=== PATIENT | female | born 1970 | race Caucasian/White ===

== ENCOUNTER 2019-12-14 03:19 | Inpatient (IN) ==
[2019-12-14] MEDS ORDERED: SODIUM CHLORIDE 0.9% 1,000 ML IV STA (04:42)
[2019-12-14 04:48] LABS: Basophils # 0.1 10*3/uL (0.0-0.2); Basophils % 0.3 % (0.0-0.8); Eosinophils # 0.3 10*3/uL (0.0-0.87); Eosinophils % 1.6 % (0.00-10.9); Hematocrit 43.1 VOL% (35.7-47.0); Hemoglobin 13.2 GM/DL (12.0-16.0); Immature Granulocytes % 0.7 %; Immature Granulocytes Absolute 0.12 #; Lymphocytes # 0.7 10*3/uL (1.4-4.0); Lymphocytes % 4.5 % (21.3-54.2); Mean Corpuscular HGB Conc 30.6 GM/DL (32-36); Mean Corpuscular Volume 78.4 FL (87-102); Mean Platelet Volume 10.3 FL (9.6-12.0); Monocytes % 2.5 % (1.7-12.7); NRBC # 0.02 10*3/uL; Neutrophils % 90.4 % (38.7-73.9); Platelet Count 303 T/CUMM (130-400); Red Cell Distribution Width 17.4 % (9.3-17.3); White Blood Count 16.5 T/CUMM (4-12)
[2019-12-14 05:17] LABS: Band Neutrophils 1 % (0-10); Eosinophils 2 % (0-10); Hypochromasia 1+; Lymphocytes 5 % (20-55); Microcytosis 2+; Platelet Estimate Normal; Segmented Neutrophils 87 % (50-85); Total Cells Counted 100
[2019-12-14 05:18] LABS: Anisocytosis Slight; Polychromasia Few; Stomatocytes Slight
[2019-12-14 05:20] LABS: Albumin 3.2 G/DL (3.4-5.0); Bilirubin,Total 0.5 MG/DL (0.2-1.0); Calcium 8.6 MG/DL (8.5-10.1); Osmolality,Calculated 282.8 MOS/KG (273-304); Total Protein 6.8 G/DL (6.4-8.3)
[2019-12-14] MEDS ORDERED: LEVOFLOXACIN INJ 750 MG in PREMIX 1 EACH IV STA (05:53)
[2019-12-14] MEDS ORDERED: ACETAMINOPHEN 325 MG TABLET PO PRN (05:54)
[2019-12-14] MEDS ORDERED: ONDANSETRON 4 MG/2 ML VIAL IV PRN (05:54)
[2019-12-14] MEDS ORDERED: DEXTROSE 10% 250 ML BAG IV PRN (08:18)
[2019-12-14] MEDS ORDERED: GLUCAGON 1 MG VIAL IM PRN (08:18)
[2019-12-14] MEDS ORDERED: ALBUTEROL 2.5 MG/3 ML NEB RESP TX PRN (08:18)
[2019-12-14] MEDS ORDERED: DAPAGLIFLOZIN METFORMIN PO SCH (09:00)
[2019-12-14] MEDS: SODIUM CHLORIDE 0.45% 1,000 ML IV SCH (09:34)
[2019-12-14] MEDS: methylPREDNISolone SOD SUC 125 MG/2 ML VIAL IV SCH ×2 (09:35→17:24)
[2019-12-14] MEDS: LEVOTHYROXINE 100 MCG TABLET PO SCH (09:35)
[2019-12-14] MEDS: ROSUVASTATIN 20 MG TABLET PO SCH (09:36)
[2019-12-14] MEDS: ENOXAPARIN 40 MG/0.4 ML SYRINGE SUBCUT SCH (09:36)
[2019-12-14] MEDS: LOSARTAN 50 MG TABLET PO SCH (09:36)
[2019-12-14] MEDS: DOCUSATE SODIUM 100 MG CAPSULE PO SCH ×2 (09:36→20:37)
[2019-12-14] MEDS: SERTRALINE 100 MG TABLET PO SCH (09:37)
[2019-12-14] MEDS: EZETIMIBE 10 MG TABLET PO SCH (09:37)
[2019-12-14] MEDS: TRIAMTERENE/HCTZ 37.5-25 MG TABLET PO SCH ×2 (09:37→09:41)
[2019-12-14] MEDS: GABAPENTIN 300 MG CAPSULE PO SCH ×3 (09:37→20:36)
[2019-12-14] MEDS: PANTOPRAZOLE 40 MG TABLET PO SCH (09:38)
[2019-12-14] MEDS: ACYCLOVIR 800 MG TABLET PO SCH ×2 (09:38→20:38)
[2019-12-14] MEDS: ALBUTEROL 2.5 MG/3 ML NEB RESP TX SCH ×3 (09:48→20:30)
[2019-12-14] MEDS ORDERED: DEXTROSE 50% 25 GM/50 ML VIAL IV PRN (10:17)
[2019-12-14 11:04] LABS: HIV Antigen/Antibody Result Nonreactive (Nonreactive)
[2019-12-14] MEDS: INSULIN LISPRO 100 UNIT/ML SUBCUT SCH ×4 (11:35→21:00)
[2019-12-14] MEDS ORDERED: INSULIN LISPRO 100 UNIT/ML SUBCUT SCH (18:00)
[2019-12-14] MEDS: cefTRIAXone 2,000 MG in SYRINGE 1 EACH IV SCH (19:02)
[2019-12-14] MEDS: DAPAGLIFLOZIN METFORMIN PO SCH (20:36)
[2019-12-14] MEDS: TOPIRAMATE 25 MG TABLET PO SCH (20:37)
[2019-12-14] MEDS: MELATONIN 3 MG TABLET PO PRN (20:38)
[2019-12-14] MEDS ORDERED: MELATONIN 5MG GUMMY PO PRN (21:00)
[2019-12-15] MEDS: methylPREDNISolone SOD SUC 125 MG/2 ML VIAL IV SCH ×3 (00:24→17:32)
[2019-12-15] MEDS: ALBUTEROL 2.5 MG/3 ML NEB RESP TX SCH ×4 (00:30→20:10)
[2019-12-15] MEDS: LEVOFLOXACIN INJ 750 MG in PREMIX 1 EACH IV SCH (06:20)
[2019-12-15] MEDS: LEVOTHYROXINE 100 MCG TABLET PO SCH (06:24)
[2019-12-15] MEDS: ENOXAPARIN 40 MG/0.4 ML SYRINGE SUBCUT SCH (08:18)
[2019-12-15] MEDS: DAPAGLIFLOZIN METFORMIN PO SCH ×2 (08:18→17:31)
[2019-12-15] MEDS: INSULIN LISPRO 100 UNIT/ML SUBCUT SCH ×4 (08:18→20:36)
[2019-12-15] MEDS: PANTOPRAZOLE 40 MG TABLET PO SCH (08:19)
[2019-12-15] MEDS: ACYCLOVIR 800 MG TABLET PO SCH ×2 (08:19→20:35)
[2019-12-15] MEDS: GABAPENTIN 300 MG CAPSULE PO SCH ×3 (08:19→20:35)
[2019-12-15] MEDS: ROSUVASTATIN 20 MG TABLET PO SCH (08:19)
[2019-12-15] MEDS: SERTRALINE 100 MG TABLET PO SCH (08:20)
[2019-12-15] MEDS: EZETIMIBE 10 MG TABLET PO SCH (08:20)
[2019-12-15] MEDS: SODIUM CHLORIDE 0.45% 1,000 ML IV SCH (08:21)
[2019-12-15] MEDS: DOCUSATE SODIUM 100 MG CAPSULE PO SCH ×2 (08:22→20:35)
[2019-12-15] MEDS: TRIAMTERENE/HCTZ 37.5-25 MG TABLET PO SCH (10:56)
[2019-12-15] MEDS: LOSARTAN 50 MG TABLET PO SCH (10:56)
[2019-12-15] MEDS: VANCOMYCIN INJ 1,250 MG in SODIUM CHLORIDE 0.9% 250 ML IV SCH (12:28)
[2019-12-15] MEDS: cefTRIAXone 2,000 MG in SYRINGE 1 EACH IV SCH (19:00)
[2019-12-15] MEDS: ZALEPLON 5 MG CAPSULE PO SCH (20:35)
[2019-12-15] MEDS: TOPIRAMATE 25 MG TABLET PO SCH (20:35)
[2019-12-16] MEDS: methylPREDNISolone SOD SUC 125 MG/2 ML VIAL IV SCH ×4 (00:06→23:56)
[2019-12-16] MEDS: ALBUTEROL 2.5 MG/3 ML NEB RESP TX SCH ×4 (01:28→20:12)
[2019-12-16] MEDS: SODIUM CHLORIDE 0.45% 1,000 ML IV SCH (03:13)
[2019-12-16] MEDS: VANCOMYCIN INJ 1,250 MG in SODIUM CHLORIDE 0.9% 250 ML IV SCH ×2 (05:35→22:31)
[2019-12-16] MEDS: LEVOFLOXACIN INJ 750 MG in PREMIX 1 EACH IV SCH (06:12)
[2019-12-16] MEDS: LEVOTHYROXINE 100 MCG TABLET PO SCH (06:16)
[2019-12-16] MEDS ORDERED: FUROSEMIDE 40 MG/4 ML VIAL IV ONE (08:46)
[2019-12-16] MEDS: ROSUVASTATIN 20 MG TABLET PO SCH (09:52)
[2019-12-16] MEDS: ACYCLOVIR 800 MG TABLET PO SCH ×2 (09:52→20:30)
[2019-12-16] MEDS: EZETIMIBE 10 MG TABLET PO SCH (09:52)
[2019-12-16] MEDS: DOXYCYCLINE HYCLATE 100 MG CAPSULE PO SCH ×2 (09:52→20:30)
[2019-12-16] MEDS: GABAPENTIN 300 MG CAPSULE PO SCH ×3 (09:53→20:31)
[2019-12-16] MEDS: PANTOPRAZOLE 40 MG TABLET PO SCH (09:53)
[2019-12-16] MEDS: LOSARTAN 50 MG TABLET PO SCH (09:53)
[2019-12-16] MEDS: DOCUSATE SODIUM 100 MG CAPSULE PO SCH ×2 (09:54→20:40)
[2019-12-16] MEDS: DAPAGLIFLOZIN METFORMIN PO SCH ×2 (09:54→17:25)
[2019-12-16] MEDS: TRIAMTERENE/HCTZ 37.5-25 MG TABLET PO SCH (09:54)
[2019-12-16] MEDS: ENOXAPARIN 40 MG/0.4 ML SYRINGE SUBCUT SCH (09:56)
[2019-12-16] MEDS: SERTRALINE 100 MG TABLET PO SCH (10:09)
[2019-12-16] MEDS: INSULIN LISPRO 100 UNIT/ML SUBCUT SCH ×4 (11:12→20:29)
[2019-12-16] MEDS: cefTRIAXone 2,000 MG in SYRINGE 1 EACH IV SCH (18:29)
[2019-12-16] MEDS: ZALEPLON 5 MG CAPSULE PO SCH (20:30)
[2019-12-16] MEDS: TOPIRAMATE 25 MG TABLET PO SCH (20:31)
[2019-12-17] MEDS: ALBUTEROL 2.5 MG/3 ML NEB RESP TX SCH ×4 (01:31→20:07)
[2019-12-17 05:34] LABS: Basophils % 0.1 % (0.0-0.8); Hematocrit 39.9 VOL% (35.7-47.0); Mean Corpuscular HGB Conc 29.6 GM/DL (32-36)
[2019-12-17 05:49] LABS: Calcium 9.2 MG/DL (8.5-10.1); Osmolality,Calculated 295.4 MOS/KG (273-304)
[2019-12-17 05:57] LABS: Immature Granulocytes % 0.8 %; Immature Granulocytes Absolute 0.11 #; Lymphocytes # 0.7 10*3/uL (1.4-4.0); Lymphocytes % 5.7 % (21.3-54.2); Mean Corpuscular Volume 80.6 FL (87-102); Mean Platelet Volume 10.8 FL (9.6-12.0); Monocytes % 2.2 % (1.7-12.7); Neutrophils % 91.2 % (38.7-73.9); Platelet Count 308 T/CUMM (130-400); Red Blood Count 4.95 MC/CUMM (3.8-5.5); Red Cell Distribution Width 17.3 % (9.3-17.3)
[2019-12-17 05:58] LABS: Hemoglobin 11.8 GM/DL (12.0-16.0)
[2019-12-17 06:01] LABS: Hypochromasia 1+; Lymphocytes 3 % (20-55); Segmented Neutrophils 94 % (50-85); Total Cells Counted 100
[2019-12-17 06:02] LABS: Microcytosis 2+; Platelet Estimate Normal
[2019-12-17] MEDS: LEVOFLOXACIN INJ 750 MG in PREMIX 1 EACH IV SCH (06:14)
[2019-12-17] MEDS: LEVOTHYROXINE 100 MCG TABLET PO SCH (06:15)
[2019-12-17] MEDS: INSULIN LISPRO 100 UNIT/ML SUBCUT SCH ×4 (07:15→20:55)
[2019-12-17] MEDS: DAPAGLIFLOZIN METFORMIN PO SCH ×2 (07:15→16:36)
[2019-12-17] MEDS: methylPREDNISolone SOD SUC 125 MG/2 ML VIAL IV SCH ×3 (07:19→23:39)
[2019-12-17] MEDS: ROSUVASTATIN 20 MG TABLET PO SCH (08:56)
[2019-12-17] MEDS: DOCUSATE SODIUM 100 MG CAPSULE PO SCH ×2 (08:56→21:43)
[2019-12-17] MEDS: GABAPENTIN 300 MG CAPSULE PO SCH ×3 (08:57→20:56)
[2019-12-17] MEDS: PANTOPRAZOLE 40 MG TABLET PO SCH (08:57)
[2019-12-17] MEDS: LOSARTAN 50 MG TABLET PO SCH (08:57)
[2019-12-17] MEDS: ENOXAPARIN 40 MG/0.4 ML SYRINGE SUBCUT SCH (08:57)
[2019-12-17] MEDS: SERTRALINE 100 MG TABLET PO SCH (08:57)
[2019-12-17] MEDS: DOXYCYCLINE HYCLATE 100 MG CAPSULE PO SCH ×2 (08:57→20:54)
[2019-12-17] MEDS: EZETIMIBE 10 MG TABLET PO SCH (08:57)
[2019-12-17] MEDS: TRIAMTERENE/HCTZ 37.5-25 MG TABLET PO SCH (08:57)
[2019-12-17] MEDS: ACYCLOVIR 800 MG TABLET PO SCH ×2 (08:58→20:54)
[2019-12-17] MEDS: ALUMINUM/MAGNES/SIMETH MAX STR 30 ML UDCUP PO PRN ×2 (14:37→20:55)
[2019-12-17] MEDS: VANCOMYCIN INJ 1,250 MG in SODIUM CHLORIDE 0.9% 250 ML IV SCH (17:59)
[2019-12-17] MEDS: TOPIRAMATE 25 MG TABLET PO SCH (20:54)
[2019-12-17] MEDS: ZALEPLON 5 MG CAPSULE PO SCH (20:54)
[2019-12-17 22:16] LABS: Specimen Source NASOPHARYNGEAL SWAB
[2019-12-18] MEDS: ALBUTEROL 2.5 MG/3 ML NEB RESP TX SCH ×4 (01:06→20:28)
[2019-12-18 06:17] LABS: Calcium 9.1 MG/DL (8.5-10.1); Osmolality,Calculated 291.5 MOS/KG (273-304)
[2019-12-18] MEDS: LEVOFLOXACIN INJ 750 MG in PREMIX 1 EACH IV SCH (06:26)
[2019-12-18] MEDS: LEVOTHYROXINE 100 MCG TABLET PO SCH (06:26)
[2019-12-18 06:35] LABS: Basophils % 0.1 % (0.0-0.8); Hematocrit 42.2 VOL% (35.7-47.0); Hemoglobin 12.6 GM/DL (12.0-16.0); Immature Granulocytes Absolute 0.11 #; Lymphocytes % 9.2 % (21.3-54.2); Mean Corpuscular HGB Conc 29.9 GM/DL (32-36); Mean Corpuscular Volume 79.8 FL (87-102); Mean Platelet Volume 10.6 FL (9.6-12.0); Monocytes % 2.5 % (1.7-12.7); Neutrophils % 87.2 % (38.7-73.9); Platelet Count 334 T/CUMM (130-400); Red Blood Count 5.29 MC/CUMM (3.8-5.5); Red Cell Distribution Width 16.8 % (9.3-17.3); White Blood Count 11.3 T/CUMM (4-12)
[2019-12-18] MEDS: methylPREDNISolone SOD SUC 40 MG/1 ML VIAL IV SCH ×3 (06:46→21:59)
[2019-12-18] MEDS: ALUMINUM/MAGNES/SIMETH MAX STR 30 ML UDCUP PO PRN ×2 (06:46→21:59)
[2019-12-18] MEDS: DOXYCYCLINE HYCLATE 100 MG CAPSULE PO SCH ×2 (08:39→22:00)
[2019-12-18] MEDS: SERTRALINE 100 MG TABLET PO SCH (08:39)
[2019-12-18] MEDS: ACYCLOVIR 800 MG TABLET PO SCH ×2 (08:39→22:06)
[2019-12-18] MEDS: EZETIMIBE 10 MG TABLET PO SCH (08:39)
[2019-12-18] MEDS: ROSUVASTATIN 20 MG TABLET PO SCH (08:39)
[2019-12-18] MEDS: TRIAMTERENE/HCTZ 37.5-25 MG TABLET PO SCH (08:40)
[2019-12-18] MEDS: LOSARTAN 50 MG TABLET PO SCH (08:40)
[2019-12-18] MEDS: PANTOPRAZOLE 40 MG TABLET PO SCH (08:40)
[2019-12-18] MEDS: ENOXAPARIN 40 MG/0.4 ML SYRINGE SUBCUT SCH (08:41)
[2019-12-18] MEDS: GABAPENTIN 300 MG CAPSULE PO SCH ×3 (08:41→22:03)
[2019-12-18] MEDS: DAPAGLIFLOZIN METFORMIN PO SCH ×2 (08:43→16:31)
[2019-12-18] MEDS: INSULIN LISPRO 100 UNIT/ML SUBCUT SCH ×4 (08:46→22:01)
[2019-12-18] MEDS: DOCUSATE SODIUM 100 MG CAPSULE PO SCH ×2 (08:50→21:59)
[2019-12-18] MEDS: VANCOMYCIN INJ 1,500 MG in SODIUM CHLORIDE 0.9% 500 ML IV SCH ×2 (11:23→22:05)
[2019-12-18 14:21] LABS: Fungitell Quantitative Value < 31 pg/mL (<60 pg/mL)
[2019-12-18] MEDS: ZALEPLON 5 MG CAPSULE PO SCH (22:00)
[2019-12-18] MEDS: TOPIRAMATE 25 MG TABLET PO SCH (22:00)
[2019-12-19] MEDS: ALBUTEROL 2.5 MG/3 ML NEB RESP TX SCH ×4 (00:33→19:33)
[2019-12-19 06:11] LABS: Calcium 8.8 MG/DL (8.5-10.1); Osmolality,Calculated 289.4 MOS/KG (273-304)
[2019-12-19 06:27] LABS: Basophils % 0.3 % (0.0-0.8); Eosinophils % 0.2 % (0.00-10.9); Hematocrit 44.4 VOL% (35.7-47.0); Hemoglobin 13.2 GM/DL (12.0-16.0); Immature Granulocytes % 1.5 %; Immature Granulocytes Absolute 0.18 #; Lymphocytes # 1.7 10*3/uL (1.4-4.0); Lymphocytes % 13.8 % (21.3-54.2); Mean Corpuscular HGB Conc 29.7 GM/DL (32-36); Mean Corpuscular Volume 79.9 FL (87-102); Mean Platelet Volume 10.3 FL (9.6-12.0); Monocytes % 6.6 % (1.7-12.7); Neutrophils % 77.6 % (38.7-73.9); Platelet Count 339 T/CUMM (130-400); Red Blood Count 5.56 MC/CUMM (3.8-5.5); Red Cell Distribution Width 16.7 % (9.3-17.3); White Blood Count 12.1 T/CUMM (4-12)
[2019-12-19] MEDS: LEVOTHYROXINE 100 MCG TABLET PO SCH (06:29)
[2019-12-19] MEDS: LEVOFLOXACIN INJ 750 MG in PREMIX 1 EACH IV SCH (06:29)
[2019-12-19] MEDS: methylPREDNISolone SOD SUC 40 MG/1 ML VIAL IV SCH ×3 (06:29→21:44)
[2019-12-19] MEDS ORDERED: PROMETHAZINE 25 MG/1 ML VIAL IM ONE (07:00)
[2019-12-19] MEDS ORDERED: MEPERIDINE 50 MG/1 ML VIAL IM ONE (07:00)
[2019-12-19] MEDS ORDERED: LIDOCAINE 2% 20 ML VIAL RESP TX ONE (07:30)
[2019-12-19] MEDS ORDERED: MIDAZOLAM 2 MG/2 ML VIAL IV ONE (07:30)
[2019-12-19] MEDS ORDERED: LIDOCAINE 2% VISCOUS 100 ML BOTTLE SWISH/SPIT ONE (07:30)
[2019-12-19] MEDS ORDERED: LIDOCAINE 1% 20 ML VIAL MISC INJ ONE (07:30)
[2019-12-19] MEDS: DOXYCYCLINE HYCLATE INJ 100 MG in SODIUM CHLORIDE 0.9% 100 ML IV SCH ×2 (09:25→21:43)
[2019-12-19] MEDS: ENOXAPARIN 40 MG/0.4 ML SYRINGE SUBCUT SCH (09:25)
[2019-12-19] MEDS: INSULIN LISPRO 100 UNIT/ML SUBCUT SCH ×4 (09:25→21:44)
[2019-12-19] MEDS: DAPAGLIFLOZIN METFORMIN PO SCH ×2 (09:32→17:30)
[2019-12-19] MEDS: GABAPENTIN 300 MG CAPSULE PO SCH ×3 (09:33→21:44)
[2019-12-19] MEDS: PANTOPRAZOLE 40 MG TABLET PO SCH (09:33)
[2019-12-19] MEDS: TRIAMTERENE/HCTZ 37.5-25 MG TABLET PO SCH (09:33)
[2019-12-19] MEDS: SERTRALINE 100 MG TABLET PO SCH (09:33)
[2019-12-19] MEDS: ROSUVASTATIN 20 MG TABLET PO SCH (09:33)
[2019-12-19] MEDS: EZETIMIBE 10 MG TABLET PO SCH (09:33)
[2019-12-19] MEDS: LOSARTAN 50 MG TABLET PO SCH (09:33)
[2019-12-19] MEDS: ACYCLOVIR 800 MG TABLET PO SCH ×2 (09:33→21:43)
[2019-12-19] MEDS: DOCUSATE SODIUM 100 MG CAPSULE PO SCH ×2 (10:16→21:44)
[2019-12-19] MEDS: ZALEPLON 5 MG CAPSULE PO SCH (21:43)
[2019-12-19] MEDS: TOPIRAMATE 25 MG TABLET PO SCH (21:44)
[2019-12-20] MEDS: ALBUTEROL 2.5 MG/3 ML NEB RESP TX SCH ×4 (01:00→20:09)
[2019-12-20 04:22] LABS: Basophils # 0.1 10*3/uL (0.0-0.2); Basophils % 0.6 % (0.0-0.8); Eosinophils % 0.2 % (0.00-10.9); Immature Granulocytes % 3.4 %; Immature Granulocytes Absolute 0.36 #; Lymphocytes # 1.2 10*3/uL (1.4-4.0); Lymphocytes % 11.2 % (21.3-54.2); Mean Corpuscular HGB Conc 29.7 GM/DL (32-36); Mean Platelet Volume 9.8 FL (9.6-12.0); Monocytes % 5.6 % (1.7-12.7); Platelet Count 320 T/CUMM (130-400); Red Blood Count 5.96 MC/CUMM (3.8-5.5); Red Cell Distribution Width 16.5 % (9.3-17.3); White Blood Count 10.4 T/CUMM (4-12)
[2019-12-20 04:32] LABS: Osmolality,Calculated 283.8 MOS/KG (273-304)
[2019-12-20 04:57] LABS: Hematocrit 46.9 VOL% (35.7-47.0)
[2019-12-20] MEDS: methylPREDNISolone SOD SUC 40 MG/1 ML VIAL IV SCH ×3 (06:21→23:23)
[2019-12-20] MEDS: LEVOFLOXACIN INJ 750 MG in PREMIX 1 EACH IV SCH (06:21)
[2019-12-20] MEDS: LEVOTHYROXINE 100 MCG TABLET PO SCH (06:22)
[2019-12-20] MEDS: ENOXAPARIN 40 MG/0.4 ML SYRINGE SUBCUT SCH (08:43)
[2019-12-20] MEDS: DOXYCYCLINE HYCLATE INJ 100 MG in SODIUM CHLORIDE 0.9% 100 ML IV SCH ×2 (08:43→21:55)
[2019-12-20] MEDS: INSULIN LISPRO 100 UNIT/ML SUBCUT SCH ×4 (08:43→21:51)
[2019-12-20] MEDS: EZETIMIBE 10 MG TABLET PO SCH (08:44)
[2019-12-20] MEDS: PANTOPRAZOLE 40 MG TABLET PO SCH (08:44)
[2019-12-20] MEDS: TRIAMTERENE/HCTZ 37.5-25 MG TABLET PO SCH (08:44)
[2019-12-20] MEDS: ACYCLOVIR 800 MG TABLET PO SCH ×2 (08:44→21:53)
[2019-12-20] MEDS: GABAPENTIN 300 MG CAPSULE PO SCH ×3 (08:44→21:52)
[2019-12-20] MEDS: DOCUSATE SODIUM 100 MG CAPSULE PO SCH ×2 (08:44→21:53)
[2019-12-20] MEDS: LOSARTAN 50 MG TABLET PO SCH (08:44)
[2019-12-20] MEDS: ROSUVASTATIN 20 MG TABLET PO SCH (08:44)
[2019-12-20] MEDS: SERTRALINE 100 MG TABLET PO SCH (08:44)
[2019-12-20] MEDS: DAPAGLIFLOZIN METFORMIN PO SCH ×2 (08:57→16:13)
[2019-12-20] MEDS: Liraglutide [Victoza 2-Pak] 1.8 MG SUBCUT SCH (18:00)
[2019-12-20] MEDS: TOPIRAMATE 25 MG TABLET PO SCH (21:53)
[2019-12-20] MEDS: ZALEPLON 5 MG CAPSULE PO SCH (21:53)
[2019-12-21] MEDS: ALBUTEROL 2.5 MG/3 ML NEB RESP TX SCH ×4 (00:30→20:12)
[2019-12-21] MEDS: methylPREDNISolone SOD SUC 40 MG/1 ML VIAL IV SCH ×2 (06:11→17:51)
[2019-12-21] MEDS: LEVOTHYROXINE 100 MCG TABLET PO SCH (06:14)
[2019-12-21] MEDS: LEVOFLOXACIN INJ 750 MG in PREMIX 1 EACH IV SCH (06:18)
[2019-12-21 06:23] LABS: Basophils # 0.1 10*3/uL (0.0-0.2); Basophils % 0.5 % (0.0-0.8); Eosinophils % 0.2 % (0.00-10.9); Hematocrit 47.3 VOL% (35.7-47.0); Hemoglobin 14.5 GM/DL (12.0-16.0); Immature Granulocytes % 2.9 %; Immature Granulocytes Absolute 0.37 #; Lymphocytes # 1.1 10*3/uL (1.4-4.0); Lymphocytes % 8.4 % (21.3-54.2); Mean Corpuscular HGB Conc 30.7 GM/DL (32-36); Mean Corpuscular Volume 78.1 FL (87-102); Mean Platelet Volume 10.5 FL (9.6-12.0); Monocytes % 3.4 % (1.7-12.7); Neutrophils % 84.6 % (38.7-73.9); Platelet Count 319 T/CUMM (130-400); Red Blood Count 6.06 MC/CUMM (3.8-5.5); Red Cell Distribution Width 16.9 % (9.3-17.3)
[2019-12-21 07:00] LABS: Calcium 9.4 MG/DL (8.5-10.1); Osmolality,Calculated 282.1 MOS/KG (273-304)
[2019-12-21] MEDS: ROSUVASTATIN 20 MG TABLET PO SCH (08:52)
[2019-12-21] MEDS: EZETIMIBE 10 MG TABLET PO SCH (08:52)
[2019-12-21] MEDS: SERTRALINE 100 MG TABLET PO SCH (08:52)
[2019-12-21] MEDS: PANTOPRAZOLE 40 MG TABLET PO SCH (08:52)
[2019-12-21] MEDS: TRIAMTERENE/HCTZ 37.5-25 MG TABLET PO SCH (08:52)
[2019-12-21] MEDS: LOSARTAN 50 MG TABLET PO SCH (08:53)
[2019-12-21] MEDS: DAPAGLIFLOZIN METFORMIN PO SCH ×2 (08:53→16:26)
[2019-12-21] MEDS: GABAPENTIN 300 MG CAPSULE PO SCH ×3 (08:53→21:12)
[2019-12-21] MEDS: INSULIN LISPRO 100 UNIT/ML SUBCUT SCH ×4 (08:54→21:11)
[2019-12-21] MEDS: ENOXAPARIN 40 MG/0.4 ML SYRINGE SUBCUT SCH (08:54)
[2019-12-21] MEDS: DOXYCYCLINE HYCLATE INJ 100 MG in SODIUM CHLORIDE 0.9% 100 ML IV SCH ×2 (08:55→21:18)
[2019-12-21] MEDS: DOCUSATE SODIUM 100 MG CAPSULE PO SCH ×2 (08:55→21:13)
[2019-12-21] MEDS: ACYCLOVIR 800 MG TABLET PO SCH ×2 (08:59→21:13)
[2019-12-21] MEDS: Liraglutide [Victoza 2-Pak] 1.8 MG SUBCUT SCH (18:11)
[2019-12-21] MEDS: TOPIRAMATE 25 MG TABLET PO SCH (21:13)
[2019-12-21] MEDS: ZALEPLON 5 MG CAPSULE PO SCH (21:13)
[2019-12-22] MEDS: ALBUTEROL 2.5 MG/3 ML NEB RESP TX SCH ×4 (00:48→13:58)
[2019-12-22 05:35] LABS: Basophils # 0.1 10*3/uL (0.0-0.2); Basophils % 0.4 % (0.0-0.8); Eosinophils # 0.1 10*3/uL (0.0-0.87); Eosinophils % 0.6 % (0.00-10.9); Hematocrit 46.9 VOL% (35.7-47.0); Hemoglobin 14.3 GM/DL (12.0-16.0); Immature Granulocytes % 2.6 %; Immature Granulocytes Absolute 0.43 #; Lymphocytes # 2.2 10*3/uL (1.4-4.0); Lymphocytes % 13.1 % (21.3-54.2); Mean Corpuscular HGB Conc 30.5 GM/DL (32-36); Mean Corpuscular Volume 77.8 FL (87-102); Mean Platelet Volume 10.7 FL (9.6-12.0); Monocytes % 6.1 % (1.7-12.7); Neutrophils % 77.2 % (38.7-73.9); Platelet Count 381 T/CUMM (130-400); Red Blood Count 6.03 MC/CUMM (3.8-5.5); Red Cell Distribution Width 17.1 % (9.3-17.3); White Blood Count 16.7 T/CUMM (4-12)
[2019-12-22 05:50] LABS: Calcium 9.4 MG/DL (8.5-10.1); Osmolality,Calculated 279.1 MOS/KG (273-304)
[2019-12-22] MEDS: LEVOTHYROXINE 100 MCG TABLET PO SCH (06:31)
[2019-12-22] MEDS: methylPREDNISolone SOD SUC 40 MG/1 ML VIAL IV SCH ×2 (06:32→18:23)
[2019-12-22] MEDS: LEVOFLOXACIN INJ 750 MG in PREMIX 1 EACH IV SCH (06:35)
[2019-12-22] MEDS: ACYCLOVIR 800 MG TABLET PO SCH ×2 (09:13→20:44)
[2019-12-22] MEDS: INSULIN LISPRO 100 UNIT/ML SUBCUT SCH ×4 (09:13→20:38)
[2019-12-22] MEDS: DAPAGLIFLOZIN METFORMIN PO SCH ×2 (09:13→16:50)
[2019-12-22] MEDS: GABAPENTIN 300 MG CAPSULE PO SCH ×3 (09:14→20:44)
[2019-12-22] MEDS: SERTRALINE 100 MG TABLET PO SCH (09:14)
[2019-12-22] MEDS: LOSARTAN 50 MG TABLET PO SCH (09:14)
[2019-12-22] MEDS: EZETIMIBE 10 MG TABLET PO SCH (09:14)
[2019-12-22] MEDS: ROSUVASTATIN 20 MG TABLET PO SCH (09:14)
[2019-12-22] MEDS: ENOXAPARIN 40 MG/0.4 ML SYRINGE SUBCUT SCH (09:15)
[2019-12-22] MEDS: TRIAMTERENE/HCTZ 37.5-25 MG TABLET PO SCH (09:15)
[2019-12-22] MEDS: PANTOPRAZOLE 40 MG TABLET PO SCH (09:15)
[2019-12-22] MEDS: DOCUSATE SODIUM 100 MG CAPSULE PO SCH ×2 (09:15→20:44)
[2019-12-22] MEDS: DOXYCYCLINE HYCLATE INJ 100 MG in SODIUM CHLORIDE 0.9% 100 ML IV SCH ×2 (09:48→20:39)
[2019-12-22] MEDS: Liraglutide [Victoza 2-Pak] 1.8 MG SUBCUT SCH (18:11)
[2019-12-22] MEDS: ZALEPLON 5 MG CAPSULE PO SCH (20:43)
[2019-12-22] MEDS: TOPIRAMATE 25 MG TABLET PO SCH (20:43)
[2019-12-23] MEDS: ALBUTEROL 2.5 MG/3 ML NEB RESP TX SCH ×4 (01:15→19:44)
[2019-12-23 05:41] LABS: Calcium 9.6 MG/DL (8.5-10.1); Osmolality,Calculated 286.5 MOS/KG (273-304)
[2019-12-23] MEDS: methylPREDNISolone SOD SUC 40 MG/1 ML VIAL IV SCH (05:42)
[2019-12-23 06:06] LABS: Basophils # 0.1 10*3/uL (0.0-0.2); Basophils % 0.4 % (0.0-0.8); Eosinophils % 0.3 % (0.00-10.9); Hematocrit 47.8 VOL% (35.7-47.0); Hemoglobin 14.7 GM/DL (12.0-16.0); Immature Granulocytes % 3.7 %; Immature Granulocytes Absolute 0.55 #; Lymphocytes # 2.1 10*3/uL (1.4-4.0); Mean Corpuscular HGB Conc 30.8 GM/DL (32-36); Mean Platelet Volume 10.4 FL (9.6-12.0); Monocytes % 6.7 % (1.7-12.7); Neutrophils % 74.9 % (38.7-73.9); Platelet Count 370 T/CUMM (130-400); Red Blood Count 6.13 MC/CUMM (3.8-5.5); Red Cell Distribution Width 17.5 % (9.3-17.3)
[2019-12-23] MEDS: LEVOTHYROXINE 100 MCG TABLET PO SCH (06:13)
[2019-12-23 06:26] LABS: Band Neutrophils 1 % (0-10); Eosinophils 1 % (0-10); Lymphocytes 15 % (20-55); Segmented Neutrophils 78 % (50-85); Total Cells Counted 100
[2019-12-23 06:27] LABS: Hypochromasia 1+; Microcytosis 1+; Ovalocytes Slight
[2019-12-23 06:28] LABS: Atypical Lymphocytes Few; Platelet Estimate Normal
[2019-12-23] MEDS: DAPAGLIFLOZIN METFORMIN PO SCH ×2 (08:32→16:46)
[2019-12-23] MEDS: LOSARTAN 50 MG TABLET PO SCH (08:34)
[2019-12-23] MEDS: ROSUVASTATIN 20 MG TABLET PO SCH (08:34)
[2019-12-23] MEDS: GABAPENTIN 300 MG CAPSULE PO SCH ×3 (08:34→21:10)
[2019-12-23] MEDS: DOCUSATE SODIUM 100 MG CAPSULE PO SCH ×2 (08:34→21:11)
[2019-12-23] MEDS: ACYCLOVIR 800 MG TABLET PO SCH ×2 (08:34→21:10)
[2019-12-23] MEDS: PANTOPRAZOLE 40 MG TABLET PO SCH (08:35)
[2019-12-23] MEDS: SERTRALINE 100 MG TABLET PO SCH (08:35)
[2019-12-23] MEDS: EZETIMIBE 10 MG TABLET PO SCH (08:35)
[2019-12-23] MEDS: DOXYCYCLINE HYCLATE INJ 100 MG in SODIUM CHLORIDE 0.9% 100 ML IV SCH ×2 (08:35→21:10)
[2019-12-23] MEDS: INSULIN LISPRO 100 UNIT/ML SUBCUT SCH ×4 (08:35→21:09)
[2019-12-23] MEDS: TRIAMTERENE/HCTZ 37.5-25 MG TABLET PO SCH (08:35)
[2019-12-23] MEDS: ENOXAPARIN 40 MG/0.4 ML SYRINGE SUBCUT SCH (08:36)
[2019-12-23] MEDS: diphenhydrAMINE CAP 25 MG CAPSULE PO PRN (16:50)
[2019-12-23] MEDS ORDERED: methylPREDNISolone SOD SUC 40 MG/1 ML VIAL IV SCH (18:00)
[2019-12-23] MEDS: Liraglutide [Victoza 2-Pak] 1.8 MG SUBCUT SCH (18:03)
[2019-12-23] MEDS: TOPIRAMATE 25 MG TABLET PO SCH (21:10)
[2019-12-23] MEDS: MELATONIN 3 MG TABLET PO PRN (21:15)
[2019-12-24] MEDS: ALBUTEROL 2.5 MG/3 ML NEB RESP TX SCH ×3 (01:31→07:47)
[2019-12-24 05:55] LABS: Albumin 3.2 G/DL (3.4-5.0); Calcium 9.2 MG/DL (8.5-10.1); Total Protein 6.1 G/DL (6.4-8.3)
[2019-12-24] MEDS: diphenhydrAMINE CAP 25 MG CAPSULE PO PRN (06:55)
[2019-12-24] MEDS: LEVOTHYROXINE 100 MCG TABLET PO SCH (06:55)
[2019-12-24 08:32] VITALS: BP 144/71
[2019-12-24] MEDS: INSULIN LISPRO 100 UNIT/ML SUBCUT SCH (08:39)
[2019-12-24] MEDS: TRIAMTERENE/HCTZ 37.5-25 MG TABLET PO SCH (09:09)
[2019-12-24] MEDS: ACYCLOVIR 800 MG TABLET PO SCH (09:09)
[2019-12-24] MEDS: DAPAGLIFLOZIN METFORMIN PO SCH (09:09)
[2019-12-24] MEDS: DOXYCYCLINE HYCLATE INJ 100 MG in SODIUM CHLORIDE 0.9% 100 ML IV SCH ×2 (09:10→09:33)
[2019-12-24] MEDS: LOSARTAN 50 MG TABLET PO SCH (09:11)
[2019-12-24] MEDS: PANTOPRAZOLE 40 MG TABLET PO SCH (09:11)
[2019-12-24] MEDS: EZETIMIBE 10 MG TABLET PO SCH (09:11)
[2019-12-24] MEDS: ROSUVASTATIN 20 MG TABLET PO SCH (09:11)
[2019-12-24] MEDS: GABAPENTIN 300 MG CAPSULE PO SCH (09:12)
[2019-12-24] MEDS: SERTRALINE 100 MG TABLET PO SCH (09:12)
[2019-12-24] MEDS: DOCUSATE SODIUM 100 MG CAPSULE PO SCH (09:15)
[2019-12-24] MEDS: ENOXAPARIN 40 MG/0.4 ML SYRINGE SUBCUT SCH (09:16)
== END 2019-12-24 11:18 | disposition home or self-care (01) | DRG 865 ==
LOC: N.ED 03:19 → N.EDINP 05:54 → SUPCPDRO 05:54 → N.CC 08:05 → N.TELEN 12-20 12:25
PROVIDERS: ADMIT Internal Medicine; ATTEND Internal Medicine